=== PATIENT | female | born 1945 | race Hispanic/Latino ===

== ENCOUNTER 2022-04-01 22:02 | Emergency (ER) | payer OTHER, MEDICARE ==
[~2022-04-01] VITALS: Ht 162.6 cm; Wt 66.2 kg
[2022-04-01 22:17] VITALS: BP 159/57
[2022-04-01] MEDS ORDERED: CLIN-141 PO (22:19)
[2022-04-01] MEDS ORDERED: ACETAMINOPHEN 500 MG TABLET ONE (22:20)
[2022-04-01] MEDS ORDERED: CLINDAMYCIN 150 MG CAP PO ONE (22:30)
[2022-04-01] MEDS ORDERED: ACETAMINOPHEN 500 MG TABLET PO ONE (22:30)
[2022-04-01] MEDS ORDERED: GENTAMICIN SULFATE 0.3% 5ML DROPS OD SCH (22:30)
== END 2022-04-01 22:43 | disposition home or self-care (01) ==
LOC: EDH 22:02
DX: H00.012 Hordeolum externum right lower eyelid (principal); L03.211 Cellulitis of face; E78.00 Pure hypercholesterolemia, unspecified; I10 Essential (primary) hypertension; Z98.890 Other specified postprocedural states

== ENCOUNTER 2022-09-18 20:13 | Emergency (ER) | payer OTHER, MEDICARE ==
[~2022-09-18] VITALS: Ht 157.5 cm; Wt 63.0 kg
[~2022-09-18 20:13] MED LIST: CLIN-141 PO
[2022-09-18] MEDS ORDERED: BENZ-39 PO (22:57)
[2022-09-18] MEDS ORDERED: MOLN200C PO (22:57)
[2022-09-18] MEDS ORDERED: FLUT16H NASAL (22:57)
[2022-09-18 22:59] VITALS: BP 151/78
== END 2022-09-18 23:03 | disposition home or self-care (01) ==
LOC: EDH 20:13
DX: U07.1 COVID-19 (principal); B34.9 Viral infection, unspecified; K21.9 Gastro-esophageal reflux disease without esophagitis; E78.00 Pure hypercholesterolemia, unspecified; Z79.899 Other long term (current) drug therapy
CPT/HCPCS: 99283; 87635; 87880; 87804 ×2; C9803

== ENCOUNTER 2022-09-27 21:27 | Emergency (ER) | payer OTHER, MEDICARE ==
[~2022-09-27] VITALS: Ht 165.1 cm; Wt 63.5 kg
[~2022-09-27 21:27] MED LIST changes: +BENZ-39 PO; +FLUT16H NASAL; +MOLN200C PO
[2022-09-27] MEDS ORDERED: CYCLOBENZAPRINE HCL 10 MG TABLET PO ONE (23:00)
[2022-09-27] MEDS ORDERED: KETOROLAC 15MG/ML VIAL (15MG/ML) IM ONE (23:00)
[2022-09-27] MEDS ORDERED: CYCL5TAB PO (23:04)
[2022-09-27] MEDS ORDERED: KETO10TA2 PO (23:04)
[2022-09-27 23:22] VITALS: BP 146/79
== END 2022-09-27 23:35 | disposition home or self-care (01) ==
LOC: EDH 21:27
DX: M62.830 Muscle spasm of back (principal); E78.00 Pure hypercholesterolemia, unspecified; I10 Essential (primary) hypertension; M19.90 Unspecified osteoarthritis, unspecified site; Z79.1 Long term (current) use of non-steroidal anti-inflammatories (NSAID); Z79.899 Other long term (current) drug therapy; Z98.890 Other specified postprocedural states
CPT/HCPCS: 96372; 99283; J1885

== ENCOUNTER 2023-01-16 17:21 | Emergency (ER) | payer OTHER, MEDICARE ==
[~2023-01-16] VITALS: Ht 157.5 cm; Wt 60.8 kg
[~2023-01-16 17:21] MED LIST changes: +CYCL5TAB PO; +FAMO-136 PO; +KETO10TA2 PO; +OMEP-420 PO
[2023-01-16 18:03] LABS: BASOPHILS % (AUTO) 0.4 % (0.0-5.0); EOSINOPHILS % (AUTO) 3.8 % (0.0-8.0); HEMATOCRIT 36.7 % (36-48); LYMPHOCYTES % (AUTO) 13.1 % (21.0-51.0); MEAN CORPUSCULAR HEMOGLOBIN 30.8 pg (27.0-33.0); MEAN CORPUSCULAR HGB CONC 34.3 g/dL (32.0-36.0); MEAN CORPUSCULAR VOLUME 89.7 fL (79-99); MONOCYTES % (AUTO) 6.4 % (3.0-13.0); NEUTROPHILS % (AUTO) 76.2 % (40.0-77.0); PLATELET COUNT (AUTO) 233 K/uL (130-400); RED BLOOD CELL COUNT(AUTO) 4.09 MIL/uL (4.00-5.50); RED CELL DISTRIBUTION WIDTH 12.2 % (11.0-15.5); WHITE BLOOD COUNT (AUTO) 6.9 K/uL (4.8-10.8)
[2023-01-16 18:05] LABS: APPEARANCE,URINE CLEAR (CLEAR); BILIRUBIN,URINE NEGATIVE (NEGATIVE); COLOR,URINE COLORLESS (YELLOW); GLUCOSE, URINE (UA) NEGATIVE (NEGATIVE); KETONES,URINE NEGATIVE (NEGATIVE); LEUKOCYTE ESTERASE ,URINE NEGATIVE Leu/uL (NEGATIVE); NITRATE,URINE NEGATIVE (NEGATIVE); PROTEIN,URINE NEGATIVE (NEGATIVE); UROBILINOGEN,URINE 0.2 mg/dL (0.2-1.0)
[2023-01-16 18:06] LABS: RBC,URINE 0-1 /HPF (0-1); SQUAMOUS EPITHELIAL CELL,UR RARE /HPF (0-2); WBC,URINE 0-1 /HPF (0-1)
[2023-01-16 18:22] LABS: CREATININE 0.8 mg/dL (0.5-1.5); POTASSIUM 3.2 mmol/L (3.5-5.1)
[2023-01-16 18:28] LABS: ALBUMIN 4.2 g/dL (3.5-5.0); TOTAL PROTEIN, SERUM 7.6 g/dL (6.0-8.3)
[2023-01-16] MEDS ORDERED: ONDA4TAB10 PO (18:57)
[2023-01-16] MEDS ORDERED: LOPE2CAP PO (18:57)
[2023-01-16 19:29] VITALS: BP 150/54
== END 2023-01-16 19:37 | disposition home or self-care (01) ==
LOC: EDH 17:21
DX: K52.9 Noninfective gastroenteritis and colitis, unspecified (principal); E78.00 Pure hypercholesterolemia, unspecified; I10 Essential (primary) hypertension; Z79.899 Other long term (current) drug therapy; Z20.822 Contact with and (suspected) exposure to COVID-19
CPT/HCPCS: 99285; 71045; 87635; 84484; 80053; 85025; 87804 ×2; 81001; 36415; 93005; C9803

== ENCOUNTER 2023-09-20 10:32 | Emergency (ER) | payer MEDICARE ==
[~2023-09-20] VITALS: Ht 157.5 cm; Wt 60.3 kg
[~2023-09-20 10:32] MED LIST changes: +LOPE2CAP PO; +ONDA4TAB10 PO
[2023-09-20 11:28] LABS: BASOPHILS # (AUTO) 0.03 K/uL (0.00-0.20); EOSINOPHILS # (AUTO) 0.11 K/uL (0.00-0.70); EOSINOPHILS % (AUTO) 3.8 % (0.0-8.0); HEMATOCRIT 39.7 % (36-48); IMMATURE GRANULOCYTE ABSOLUTE 0.01 K/uL (0-1); LYMPHOCYTES # (AUTO) 0.8 K/uL (1.0-4.8); LYMPHOCYTES % (AUTO) 25.9 % (21.0-51.0); MEAN CORPUSCULAR HEMOGLOBIN 31.7 pg (27.0-33.0); MEAN CORPUSCULAR HGB CONC 34.8 g/dL (32.0-36.0); MEAN CORPUSCULAR VOLUME 91.1 fL (79-99); MONOCYTES # (AUTO) 0.4 K/uL (0.1-1.0); NEUTROPHILS # (AUTO) 1.6 K/uL (1.8-7.7); PLATELET COUNT (AUTO) 212 K/uL (130-400); RED BLOOD CELL COUNT(AUTO) 4.36 MIL/uL (4.00-5.50); RED CELL DISTRIBUTION WIDTH 12.2 % (11.0-15.5); WHITE BLOOD COUNT (AUTO) 2.9 K/uL (4.8-10.8)
[2023-09-20 11:41] LABS: ALBUMIN 4.1 g/dL (3.5-5.0); BILIRUBIN,TOTAL 1.1 mg/dL (0.2-1.0); CREATININE 0.8 mg/dL (0.5-1.5); TOTAL PROTEIN, SERUM 7.9 g/dL (6.0-8.3)
[2023-09-20 12:27] LABS: BAND NEUTROPHILS % (MANUAL) 3 % (0-2); BASOPHILS % (MANUAL) 1 % (0-2); EOSINOPHILS % (MANUAL) 6 % (1-6); LYMPHOCYTES % (MANUAL) 28 % (22-44); MAN.DIFF COMMENT-IMPRESSION MANUAL DIFFERENTIAL; MONOCYTES % (MANUAL) 14 % (2-9); PLATELET MORPHOLOGY COMMENT ADEQUATE; SEGMENTED NEUTROPHILS % 48 % (40-70); TOTAL CELLS COUNTED 100
[2023-09-20 12:29] LABS: POTASSIUM 2.9 mmol/L (3.5-5.1)
[2023-09-20] MEDS ORDERED: LACTATED RINGERS 1000ML 1,000 ML IV ONE (12:30)
[2023-09-20] MEDS ORDERED: ONDANSETRON 4MG INJ IVP ONE (12:30)
[2023-09-20 13:54] LABS: APPEARANCE,URINE CLEAR (CLEAR); BILIRUBIN,URINE NEGATIVE (NEGATIVE); COLOR,URINE LIGHT-YELLOW (YELLOW); GLUCOSE, URINE (UA) NEGATIVE (NEGATIVE); KETONES,URINE NEGATIVE (NEGATIVE); LEUKOCYTE ESTERASE ,URINE NEGATIVE Leu/uL (NEGATIVE); NITRATE,URINE NEGATIVE (NEGATIVE); PH,URINE 6.5 (5.0-8.0); PROTEIN,URINE NEGATIVE (NEGATIVE); UROBILINOGEN,URINE 0.2 mg/dL (0.2-1.0)
[2023-09-20 13:55] LABS: ADD UA MICROSCOPIC YES
[2023-09-20 13:56] LABS: RBC,URINE 0-1 /HPF (0-1); WBC,URINE 0-1 /HPF (0-1)
[2023-09-20 14:00] VITALS: BP 134/61; PULSE 59; RESP 14; O2SAT 100
[2023-09-20] MEDS ORDERED: POTASSIUM BICARB/CIT AC 25 MEQ TABLET.EFF PO ONE (14:00)
[2023-09-20] MEDS ORDERED: ONDA4TAB10 PO (14:13)
== END 2023-09-20 14:32 | disposition home or self-care (01) ==
LOC: EDH 10:32
DX: R11.2 Nausea with vomiting, unspecified (principal); E87.6 Hypokalemia; E63.9 Nutritional deficiency, unspecified; E78.00 Pure hypercholesterolemia, unspecified; I10 Essential (primary) hypertension; K21.9 Gastro-esophageal reflux disease without esophagitis; Z79.899 Other long term (current) drug therapy
CPT/HCPCS: 99285; 96374; 71045; 96361; 84484; 80053; 83880; 85025; 81001; 36415; 93005; J7120; J2405

== ENCOUNTER 2024-04-05 10:05 | Emergency (ER) | payer OTHER, MEDICARE ==
[~2024-04-05] VITALS: Ht 149.9 cm; Wt 58.1 kg
[~2024-04-05 10:05] MED LIST changes: +ONDA-243 PO; -ONDA4TAB10 PO
[2024-04-05] MEDS ORDERED: SOLU-MEDROL 125MG VIAL IVP ONE (11:00)
[2024-04-05] MEDS ORDERED: METH4TAB3 PO (12:06)
[2024-04-05] MEDS: SOLU-MEDROL 125MG VIAL IM ONE (12:29)
[2024-04-05] MEDS: ACETAMINOPHEN WITH CODEINE 1 TAB TAB PO ONE (12:29)
[2024-04-05 13:20] VITALS: BP 152/65; PULSE 78; RESP 16; O2SAT 97
== END 2024-04-05 13:21 | disposition home or self-care (01) ==
LOC: EDH 10:05
DX: M16.12 Unilateral primary osteoarthritis, left hip (principal); G89.29 Other chronic pain; E78.00 Pure hypercholesterolemia, unspecified; I10 Essential (primary) hypertension; K21.9 Gastro-esophageal reflux disease without esophagitis; Z79.899 Other long term (current) drug therapy
CPT/HCPCS: 99283; 73502; 96372; J2919

== ENCOUNTER 2024-04-10 17:34 | Observation (INO) | payer OTHER, MEDICARE ==
[~2024-04-10] VITALS: Ht 134.6 cm; Wt 53.4 kg
[~2024-04-10 17:34] MED LIST changes: +METH4TAB3 PO
[2024-04-10 18:11] LABS: BASOPHILS # (AUTO) 0.02 K/uL (0.00-0.20); BASOPHILS % (AUTO) 0.5 % (0.0-5.0); EOSINOPHILS # (AUTO) 0.19 K/uL (0.00-0.70); EOSINOPHILS % (AUTO) 4.3 % (0.0-8.0); HEMATOCRIT 35.1 % (36-48); IMMATURE GRANULOCYTE ABSOLUTE 0.01 K/uL (0-1); LYMPHOCYTES # (AUTO) 1.3 K/uL (1.0-4.8); LYMPHOCYTES % (AUTO) 30.5 % (21.0-51.0); MEAN CORPUSCULAR HEMOGLOBIN 32.2 pg (27.0-33.0); MEAN CORPUSCULAR HGB CONC 36.5 g/dL (32.0-36.0); MEAN CORPUSCULAR VOLUME 88.2 fL (79-99); MONOCYTES # (AUTO) 0.6 K/uL (0.1-1.0); MONOCYTES % (AUTO) 12.5 % (3.0-13.0); NEUTROPHILS # (AUTO) 2.3 K/uL (1.8-7.7); PLATELET COUNT (AUTO) 187 K/uL (130-400); RED BLOOD CELL COUNT(AUTO) 3.98 MIL/uL (4.00-5.50); RED CELL DISTRIBUTION WIDTH 11.8 % (11.0-15.5); WHITE BLOOD COUNT (AUTO) 4.4 K/uL (4.8-10.8)
[2024-04-10 18:19] LABS: APPEARANCE,URINE CLEAR (CLEAR); BILIRUBIN,URINE NEGATIVE (NEGATIVE); GLUCOSE, URINE (UA) NEGATIVE (NEGATIVE); KETONES,URINE 10 mg/dL (NEGATIVE); LEUKOCYTE ESTERASE ,URINE NEGATIVE Leu/uL (NEGATIVE); NITRATE,URINE NEGATIVE (NEGATIVE); PROTEIN,URINE NEGATIVE (NEGATIVE); UROBILINOGEN,URINE 0.2 mg/dL (0.2-1.0)
[2024-04-10 18:20] LABS: ADD UA MICROSCOPIC YES; COLOR,URINE STRAW (YELLOW)
[2024-04-10 18:21] LABS: WBC,URINE 0-1 /HPF (0-1)
[2024-04-10 18:28] LABS: BILIRUBIN,TOTAL 1.4 mg/dL (0.2-1.0); CREATININE 0.7 mg/dL (0.5-1.0); POTASSIUM 3.9 mmol/L (3.5-5.1); TOTAL PROTEIN, SERUM 7.3 g/dL (6.0-8.3)
[2024-04-10] MEDS: 0.9%NACL 1000ML 1,000 ML IV ONE (20:38)
[2024-04-10] MEDS ORDERED: CETI10TA57 PO (21:13)
[2024-04-10] MEDS ORDERED: LISI1TAB53 PO (21:13)
[2024-04-10] MEDS ORDERED: ERGO500093 PO (21:13)
[2024-04-10] MEDS ORDERED: PANT40TA54 PO (21:13)
[2024-04-10] MEDS ORDERED: SIMV-46 PO (21:13)
[2024-04-10] MEDS ORDERED: ONDANSETRON 4MG INJ IV PRN (22:00)
[2024-04-10] MEDS: LACTATED RINGERS 1000ML 1,000 ML IV SCH (22:38)
[2024-04-10 22:55] VITALS: BP 136/66; PULSE 67; RESP 22; O2SAT 100
[2024-04-10 22:59] LABS: CHLORIDE,URINE RANDOM 22 mmol/L (110-250); POTASSIUM,URINE RANDOM < 9 mmol/L (25-125); SODIUM,URINE RANDOM 15 mmol/l (40-220)
[2024-04-11] VITALS (9 sets, daily range): BP systolic 93–165; BP diastolic 53–74; PULSE 65–75; RESP 18–20; O2SAT 97–99
[2024-04-11 00:41] LABS: CREATININE 0.8 mg/dL (0.5-1.0); POTASSIUM 3.1 mmol/L (3.5-5.1)
[2024-04-11] MEDS ORDERED: MAGNESIUM 2GM PREMIX 50ML 50 ML IV PRN (02:00)
[2024-04-11] MEDS: POTASSIUM CHLORIDE 20MEQ/100ML 100 ML IV PRN (02:22)
[2024-04-11 07:23] LABS: BASOPHILS # (AUTO) 0.02 K/uL (0.00-0.20); BASOPHILS % (AUTO) 0.7 % (0.0-5.0); EOSINOPHILS # (AUTO) 0.18 K/uL (0.00-0.70); EOSINOPHILS % (AUTO) 6.1 % (0.0-8.0); HEMATOCRIT 31.6 % (36-48); LYMPHOCYTES # (AUTO) 1.1 K/uL (1.0-4.8); LYMPHOCYTES % (AUTO) 38.4 % (21.0-51.0); MEAN CORPUSCULAR HEMOGLOBIN 32.4 pg (27.0-33.0); MEAN CORPUSCULAR VOLUME 87.5 fL (79-99); MONOCYTES # (AUTO) 0.5 K/uL (0.1-1.0); MONOCYTES % (AUTO) 15.2 % (3.0-13.0); NEUTROPHILS # (AUTO) 1.2 K/uL (1.8-7.7); NEUTROPHILS % (AUTO) 39.6 % (40.0-77.0); PLATELET COUNT (AUTO) 190 K/uL (130-400); RED BLOOD CELL COUNT(AUTO) 3.61 MIL/uL (4.00-5.50)
[2024-04-11 08:17] LABS: ALBUMIN 3.5 g/dL (3.5-5.0); CREATININE 0.7 mg/dL (0.5-1.0); MAGNESIUM 1.8 mg/dL (1.80-2.40); POTASSIUM 3.6 mmol/L (3.5-5.1); THYROID STIMULATING HORMONE 2.24 uIU/mL (0.36-3.74); TOTAL PROTEIN, SERUM 6.2 g/dL (6.0-8.3)
[2024-04-11 08:57] LABS: BASOPHILS % (MANUAL) 1 % (0-2); EOSINOPHILS % (MANUAL) 5 % (1-6); LYMPHOCYTES % (MANUAL) 40 % (22-44); MAN.DIFF COMMENT-IMPRESSION MANUAL DIFFERENTIAL; MONOCYTES % (MANUAL) 8 % (2-9); PLATELET MORPHOLOGY COMMENT ADEQUATE; SEGMENTED NEUTROPHILS % 46 % (40-70); TOTAL CELLS COUNTED 100
[2024-04-11] MEDS: LISINOPRIL 20 MG TABLET PO SCH (09:00)
[2024-04-11] MEDS: CETIRIZINE HCL 5 MG TABLET PO SCH (09:00)
[2024-04-11] MEDS: HYDROCHLOROTHIAZIDE 25 MG TABLET PO SCH (09:00)
[2024-04-11] MEDS: SIMVASTATIN 20 MG TABLET PO SCH (09:00)
[2024-04-11] MEDS: FAMOTIDINE 20MG VIAL IV SCH (09:52)
[2024-04-11] MEDS: 0.9%NACL 1000ML 1,000 ML IV SCH (09:53)
[2024-04-12] VITALS (14 sets, daily range): BP systolic 104–166; BP diastolic 51–75; PULSE 59–81; RESP 13–22; O2SAT 99–100
[2024-04-12 05:02] LABS: HEMATOCRIT 30.2 % (36-48); MEAN CORPUSCULAR HEMOGLOBIN 30.9 pg (27.0-33.0); MEAN CORPUSCULAR HGB CONC 34.4 g/dL (32.0-36.0); MEAN CORPUSCULAR VOLUME 89.6 fL (79-99); RED BLOOD CELL COUNT(AUTO) 3.37 MIL/uL (4.00-5.50); RED CELL DISTRIBUTION WIDTH 12.2 % (11.0-15.5); WHITE BLOOD COUNT (AUTO) 3.4 K/uL (4.8-10.8)
[2024-04-12 05:14] LABS: ALBUMIN 3.3 g/dL (3.5-5.0); BILIRUBIN,TOTAL 0.8 mg/dL (0.2-1.0); CREATININE 0.6 mg/dL (0.5-1.0); POTASSIUM 3.3 mmol/L (3.5-5.1); TOTAL PROTEIN, SERUM 5.7 g/dL (6.0-8.3)
[2024-04-12] MEDS ORDERED: PROPOFOL 10 MG/ML 20ML VIAL IV ONE (12:14)
[2024-04-12] MEDS ORDERED: LIDOCAINE PF 100MG/5ML (2%) SYRINGE 5ML ONE (12:14)
[2024-04-13 00:44] VITALS: BP 121/63; PULSE 82; RESP 18
[2024-04-13 04:43] VITALS: BP 111/44; PULSE 60; RESP 18
[2024-04-13 07:00] VITALS: BP 129/74; PULSE 68; RESP 20
[2024-04-13 07:40] VITALS: O2SAT 100
[2024-04-13 11:00] VITALS: BP 120/64; PULSE 78; RESP 20
== END 2024-04-13 14:03 | disposition home or self-care (01) ==
LOC: EDH 17:34 → EDHIP 21:43 → INTOOBSV 21:43 → 2AH 22:55
PROVIDERS: ADMIT Internal Medicine; ATTEND Internal Medicine
DX: K29.70 Gastritis, unspecified, without bleeding (principal); K22.2 Esophageal obstruction; R62.7 Adult failure to thrive; R13.10 Dysphagia, unspecified; R63.4 Abnormal weight loss; E87.1 Hypo-osmolality and hyponatremia; E87.6 Hypokalemia; E78.5 Hyperlipidemia, unspecified; I10 Essential (primary) hypertension; M81.0 Age-related osteoporosis without current pathological fracture; K21.9 Gastro-esophageal reflux disease without esophagitis; E78.00 Pure hypercholesterolemia, unspecified; E87.8 Other disorders of electrolyte and fluid balance, not elsewhere classified; Z79.899 Other long term (current) drug therapy
CPT/HCPCS: 80051; 84295; 99285; 84443 ×2; 84484; 80053 ×3; 83880; 85025 ×2; 81001; 36415 ×3; 71045; 93005; 96376 ×3; 96361 ×2; 96365; 96366 ×2; 96375; 83735; 83930; 82533; 74240; 92610; 43239; 85027; 88305; 88312; 43248; G0378 ×3; J7120; J7030; J3490 ×4; J3480 ×4; J2001; J2704; A4620; A4215; A4223; A4222; 80048; 96374

== ENCOUNTER 2025-01-16 15:26 | Emergency (ER) | payer OTHER, MEDICARE ==
[~2025-01-16] VITALS: Ht 160 cm; Wt 57.2 kg
[~2025-01-16 15:26] MED LIST changes: +AZIT250T9 PO; +CETI10TA57 PO; -CLIN-141 PO; -CYCL5TAB PO; +ERGO500093 PO; -FAMO-136 PO; -FLUT16H NASAL; -KETO10TA2 PO; -LOPE2CAP PO; -METH4TAB3 PO; -MOLN200C PO; -OMEP-420 PO; -ONDA-243 PO; +PANT40TA54 PO; +SIMV-46 PO
--- NOTE | 2025-01-16 15:35 | ERN ---
ED Note History of Present Illness Stated Complaint: COUGH Chief Complaint: Cough Time Seen by MD: 15:30 Dictation: PATIENT IS AN 79-YEAR-OLD FEMALE COMING IN TODAY WITH COUGH AND SHORTNESS A BREATH WITH CLEARED PHLEGM FOR THE LAST TWO DAYS. NO FEVER NO CHILLS NO CHEST PAIN NO BACK PAIN. SHE STATES SHE HAS A HISTORY OF RHEUMATOID ARTHRITIS AND HYPERTENSION. HE HAS NOT BEEN CARE DOCTOR. Allergies: Coded Allergies: No Known Allergies (Unverified Allergy, Unknown, 04/01/22) Home Meds Active Scripts Benzonatate (Tessalon Perles) 100 Mg Cap, 100 MG PO TID for cough for 5 Days, #15 CAP 0 Refills Prov:EMMA HUERTA 04/24/24 Azithromycin (Azithromycin) 250 Mg Tablet, 250 MG PO DAILY for 5 Days, #5 TAB Prov:EMMA HUERTA 04/24/24 Reported Medications Simvastatin (Simvastatin) 40 Mg Tablet, 40 MG PO DAILY, TAB 04/10/24 Ergocalciferol (Vitamin D2) (Vitamin D2) 1,250 Mcg (68249 Unit) Capsule, 1250 MCG PO QWEEK, CAP 04/10/24 Pantoprazole Sodium (Pantoprazole Sodium) 40 Mg Tablet.dr, 40 MG PO DAILY, TAB 04/10/24 Cetirizine HCl (Cetirizine HCl) 10 Mg Tablet, 10 MG PO DAILY, TAB 04/10/24 Past Medical History Past Medical History: Arthritis, High Cholesterol Additional Past Medical Hx: ESOPHAGEAL STRICTURE Surgical History: Other, BTL, Surgical History Other: TUBAL Family History: Negative Social History: Negative, Lives with family History: Not Applicable RN Note Reviewed/Agreed w/PFSH: Yes Review of System Dictation CONSTITUTIONAL: NEGATIVE EXCEPT FOR HPI HEAD/FACE: NEGATIVE EXCEPT FOR HPI EENT: NEGATIVE EXCEPT FOR HPI RESPIRATORY: NEGATIVE EXCEPT FOR HPI COUGH WITH WHITE PHLEGM MUCH MILD SOB GASTROINTESTINAL/ABDOMINAL: NEGATIVE EXCEPT FOR HPI GENITOURINARY: NEGATIVE EXCEPT FOR HPI MUSCULOSKELETAL: NEGATIVE EXCEPT FOR HPI INTEGUMENTARY: NEGATIVE EXCEPT FOR HPI NEUROLOGICAL/PSYCH: NEGATIVE EXCEPT FOR HPI HEMATOLOGIC/LYMPHATIC: NEGATIVE EXCEPT FOR HPI ALL SYSTEMS NEGATIVE, EXCEPT NOTED ABOVE. 13 POINT REVIEW OF SYSTEMS ASSESSED AND ALL NEGATIVE EXCEPT FOR ABOVE. Initial Vital Sign VS Vital Signs Date Time Temp Pulse Resp B/P (MAP) Pulse Ox O2 Delivery O2 Flow Rate FiO2 01/16/25 15:30 100.9 95 16 167/70 97 Room Air 0 01/16/25 16:23 21 Physical Exam Dictation VITAL SIGNS REVIEWED GENERAL APPEARANCE: ALERT, ORIENTED X 3, NO ACUTE DISTRESS, WELL DEVELOPED, NOURISHED. HEAD AND FACE: NON-TRAUMATIC. EYES: PERRL, PINK CONJUNCTIVAS, EYELID NO TRAUMA, ANTERIOR CHAMBER WITH ARCUS SENILIS. EARS: PINNAS INTACT AND NO SIGNS OF TRAUMA OR ERYTHEMA EAR CANALS CLEAR AND NO DISCHARGE TM NO ERYTHEMA NOSE: NO DISCHARGE, NO BLEEDING. OROPHARYNX: MOUTH NORMAL, TONGUE PINK, PHARYNX CLEAR,NO ERYTHEMA, TONSILS NO EXUDATES, NO ABSCESSES NOTED, MUCOUS MEMBRANE MOIST NECK: SUPPLE, NON-TENDER, NO THYROMEGALY, NO MASSES, NO JVD, NO BRUITS BREAST:DEFERRED CHEST:NO TENDERNESS, NO CREPITUS, NO PARADOXICAL MOVEMENT, NO RETRACTIONS LUNGS:CLEAR, WELL-VENTILATED, SYMMETRIC, NO RALES, NO WHEEZING, NO RHONCHI, NO STRIDOR, GOOD BREATH SOUNDS BILATERALLY INTERMITTENT DRY COUGH NO HEART: REGULAR RATE, REGULAR RHYTHM, NO MURMUR, NO GALLOPS VASCULAR: NO PERIPHERAL EDEMA, ABDOMEN: SOFT, POSITIVE BOWEL SOUNDS, NONDISTENDED, NO GUARDING, NONTENDER, NO REBOUND, NO MASSES NO HEPATOMEGALY, NO SPLENOMEGALY, NO CAN'S SIGN, NO HERNIAS. RECTAL: DEFERRED GENITAL: DEFERRED NEUROLOGICAL: NORMAL SPEECH, MOTOR FUNCTION INTACT, SENSORY FUNCTION INTACT MUSCULOSKELETAL: NECK NONTENDER, FULL RANGE OF MOTION, BACK NONTENDER, FULL RANGE OF MOTION, EXTREMITIES: NONTENDER, FULL RANGE OF MOTION SKIN: COLOR PINK, DRY, NO TURGOR, NO RASH, NO LACERATIONS, NO ABRASIONS, NO CONTUSIONS. LYMPHATIC: DEFERRED Results (Laboratory/Radiology) Laboratory/Radiology Laboratory Tests Test 01/16/25 15:35 Influenza Type A Antigen Negative For Type A Influenza Type B Antigen Negative For Type B SARS-CoV-2 Antigen (Rapid) PRESUMPTIVE NEGATIVE Group A Streptococcus Rapid negative (NEGATIVE) CHEST X-RAY NEGATIVE Labs Reviewed?: Yes ED Course ED Course Orders Procedure Category Date Status Time Rapid (Group A Strep) LAB 01/16/25 Complete 15:32 Covid19 (Sars Antigen LAB 01/16/25 Complete Rapid) 15:32 Influenza Type A & B, LAB 01/16/25 Complete Rapid 15:32 Dexamethasone 4mg/Ml PHA 01/16/25 Complete 1ml Vial (Dexametha 16:00 Chest 1vw RAD 01/16/25 Resulted 15:32 Acetaminophen 500mg PHA 01/16/25 Complete Tab (Tylenol 500mg T 16:00 Current Medications Medications (Trade) Dose Ordered Sig/Keke Route PRN Reason Start Time Stop Time Status Last Admin Dose Admin Acetaminophen (TYLenol 500MG TAB) 1,000 mg ONCE ONCE PO 01/16/25 16:00 01/16/25 16:01 DC 01/16/25 16:47 Dexamethasone Sodium Phosphate (dexaMETHasone 4MG/ML 1ML VIAL) 8 mg ONCE ONCE IM 01/16/25 16:00 01/16/25 16:01 DC 01/16/25 16:48 Vital Signs Date Time Temp Pulse Resp B/P (MAP) Pulse Ox O2 Delivery O2 Flow Rate FiO2 01/16/25 16:47 100.9 01/16/25 16:23 100.9 90 16 165/65 98 Room Air* 0 21 01/16/25 15:30 100.9 95 16 167/70 97 Room Air 0 1725/PATIENT DISCHARGED HOME WITH VIRAL URI WITH COUGH. DISCHARGED HOME WITH GÓMEZ ARTEAGA, WE WILL BE GIVEN AZITHROMYCIN IF ANY FEVERS IN THE NEXT 2-3 DAYS SEE YOUR PRIMARY CARE DOCTOR FOR FOLLOW UP Medical Decision Making MDM MEDICAL DISCHARGE MAKING BASED ON SWABS FOR FLU COVID AND STREP ALL SWABS NEGATIVE CHEST X-RAY CLEAR PATIENT HAS LOW-GRADE FEVER AND WE WILL BE TREATED FOR VIRAL URI WITH COUGH DX & DISP Disposition: Discharge Departure Impression: Primary Impression: Acute bacterial bronchitis Additional Impression: Cough Condition: Stable Scripts Benzonatate (Daleon Gary) 100 Mg Cap 200 MG PO TID for cough, #60 CAP 0 Refills Prov: EL CAST TOLL LINE REPAIRER 01/16/25 Albuterol Sulfate (Ventolin Hfa/Proventil Hfa/Proair Hfa) 90 Mcg Puff 2 PUFF IH Q4H for WHEEZING, #1 INHALER 0 Refills Prov: EL CAST NP 01/16/25 Azithromycin (Zithromax Tri-Jostin) 500 Mg Tablet 500 MG PO DAILY for 5 Days, #5 TAB Prov: EL CAST TOLL LINE REPAIRER 01/16/25 Additional Instructions: Follow-up with primary care provider in 1 to 2 days. Take medications as directed here in the emergency room. Okay to continue home medications unless otherwise discussed during your visit in the emergency room today. Return to your nearest emergency room if symptoms worsen or if there is no improvement. Call 911 if you need immediate assistance. Take Tylenol or Motrin [id number] as needed and if no contraindications are present. Increase oral hydration. A wound culture or urine culture was ordered here in the emergency room department please follow-up with primary care provider and advise them to get repeat ports from our facility. If you had any James wrap/splints that were applied here, please do not remove them until you see your primary care or specialty. Take antibiotics as directed until gone. Use albuterol inhaler every 4 hours while awake for the next two days. Take Tessalon Perles for cough. See your primary care doctor for follow up and manage Referrals: EMILIANO NEGRON MD (PCP) Time of Disposition: 17:25 I have reviewed the case, and I agree with, Diagnosis and Plan EL CAST NP Jan 16, 2025 15:35
[2025-01-16 16:39] LABS: RAPID GROUP A STREP negative (NEGATIVE)
[2025-01-16 16:46] LABS: COVID19 (SARS ANTIGEN RAPID) PRESUMPTIVE NEGATIVE (NEGATIVE)
[2025-01-16 16:47] VITALS: TEMP 100.9
[2025-01-16 16:47] LABS: INFLUENZA TYPE A Negative For Type A (NEGATIVE); INFLUENZA TYPE B Negative For Type B (NEGATIVE)
[2025-01-16] MEDS: acetaMINOPHEN 500 MG TABLET PO ONE (16:47)
[2025-01-16] MEDS: dexaMETHasone SOD PHOSPHATE 4 MG/ML 1ML VIAL IM ONE (16:48)
--- NOTE | 2025-01-16 17:01 | HMCIMG ---
CHEST 1VW HISTORY: Shortness of breath COMPARISON: 12/11/2024 FINDINGS: A frontal projection of the chest was obtained. No acute pulmonary infiltrates is seen. The heart is borderline enlarged. Degenerative changes are seen. Prominent interstitial markings are seen. Aortic calcifications are seen. IMPRESSION: 1. No acute pulmonary infiltrate is seen.
[2025-01-16] MEDS ORDERED: ALBUHFA IH (17:26)
[2025-01-16] MEDS ORDERED: AZIT500T2 PO (17:26)
[2025-01-16] MEDS ORDERED: BENZ-39 PO (17:26)
[2025-01-16 17:30] VITALS: BP 168/65; PULSE 88; RESP 16; TEMP 99.5; O2SAT 98
== END 2025-01-16 17:36 | disposition home or self-care (01) ==
LOC: EDH 15:26
DX: J20.8 Acute bronchitis due to other specified organisms (principal); R05.9 Cough, unspecified; B96.89 Other specified bacterial agents as the cause of diseases classified elsewhere; M19.90 Unspecified osteoarthritis, unspecified site; E78.00 Pure hypercholesterolemia, unspecified; Z79.899 Other long term (current) drug therapy; Z98.51 Tubal ligation status; Z20.822 Contact with and (suspected) exposure to COVID-19
CPT/HCPCS: 99284; 71045; 87426; 87880; 87804 ×2; 96372; J1100

== ENCOUNTER 2025-06-02 19:31 | Emergency (ER) | payer OTHER, MEDICARE ==
[~2025-06-02] VITALS: Ht 152.4 cm; Wt 49.9 kg
[~2025-06-02 19:31] MED LIST changes: +ALBUHFA IH; +AZIT500T2 PO; +METH-662 PO
[2025-06-02 20:26] LABS: IMMATURE GRANULOCYTE ABSOLUTE 0.02 K/uL (0-1); NUCLEATED RED BLOOD CELLS 0.0 % (0.0-0.19); PLATELET COUNT (AUTO) 163 K/uL (130-400); RED BLOOD CELL COUNT(AUTO) 3.97 MIL/uL (4.00-5.50); RED CELL DISTRIBUTION WIDTH 11.9 % (11.0-15.5); WHITE BLOOD COUNT (AUTO) 5.3 K/uL (4.8-10.8)
[2025-06-02 20:33] LABS: APPEARANCE,URINE CLEAR (CLEAR); GLUCOSE, URINE (UA) NEGATIVE (NEGATIVE); LEUKOCYTE ESTERASE ,URINE NEGATIVE Leu/uL (NEGATIVE); NITRATE,URINE NEGATIVE (NEGATIVE); OCCULT BLOOD,URINE +- (TRACE) (NEGATIVE)
[2025-06-02 20:34] LABS: ADD UA MICROSCOPIC YES
[2025-06-02 20:36] LABS: CREATININE 0.7 mg/dL (0.5-1.0); GLOMERULAR FILTR. RATE CALC 86.0 mL/min (>90); GLUCOSE,RANDOM 106.0 mg/dL (70-105); SODIUM SERUM 136.0 mmol/L (136-145); UREA NITROGEN, BLOOD 6.0 mg/dL (7-18)
--- NOTE | 2025-06-02 20:37 | ERN ---
ED Note History of Present Illness Stated Complaint: FEELS DEHYDRATED Chief Complaint: Hypertension Time Seen by MD: 19:41 Dictation: This is an 80-year-old female who presented to the emergency room stating that she has been urinating more she was given a pill recently by her PCP and she did not feel well. The daughter instructed her to take her blood pressure which was very elevated and she came into the ER with her spouse for further evaluation. She stated that she felt like she was dehydrated because of the recent pill although she is trying to drink enough fluids. No dysuria hematuria. She had some dizziness. Which started around 1:00 p.m.. She does state that her mouth gets dry easily. She usually takes her antihypertensives in the morning. It appears that she has had chronic joint pains neck pains for many years and her primary care physician recommended only Tylenol at her advanced age. She stated that she was really having worse neck pain and joint pains today prior to her blood pressure being high Temperature 97.6 pulse 86 respirations 16 blood pressure 208/89 with a pulse oximetry of 99%. Chronic medical problems include hypertension, hypercholesterolemia, esophageal stricture and psoriatic arthritis and osteoarthritis. Allergies: Coded Allergies: No Known Allergies (Unverified Allergy, Unknown, 04/01/22) Home Meds Active Scripts Tramadol Hcl (Tramadol HCl) 50 Mg Tablet, 50 MG PO TIDP, #16 TAB 0 Refills Prov:KEVIN AVALOS MD 06/02/25 Methocarbamol (Robaxin) 750 Mg Tab, 1 TAB PO DAILY for 5 Days, #5 TAB 0 Refills Prov:ANGELICA ANTONIO MD 02/28/25 Benzonatate (Tessalon Perles) 100 Mg Cap, 200 MG PO TID for cough, #60 CAP 0 Refills Prov:EL CAST NP 01/16/25 Albuterol Sulfate (Ventolin Hfa/Proventil Hfa/Proair Hfa) 90 Mcg Puff, 2 PUFF IH Q4H for WHEEZING, #1 INHALER 0 Refills Prov:EL CAST NP 01/16/25 Azithromycin (Zithromax Tri-Jostin) 500 Mg Tablet, 500 MG PO DAILY for 5 Days, #5 TAB Prov:EL CAST NP 01/16/25 Benzonatate (Tessalon Perles) 100 Mg Cap, 100 MG PO TID for cough for 5 Days, #15 CAP 0 Refills Prov:EMMA HUERTA 04/24/24 Azithromycin (Azithromycin) 250 Mg Tablet, 250 MG PO DAILY for 5 Days, #5 TAB Prov:EMMA HUERTA 04/24/24 Reported Medications Simvastatin (Simvastatin) 40 Mg Tablet, 40 MG PO DAILY, TAB 04/10/24 Ergocalciferol (Vitamin D2) (Vitamin D2) 1,250 Mcg (08815 Unit) Capsule, 1250 MCG PO QWEEK, CAP 04/10/24 Pantoprazole Sodium (Pantoprazole Sodium) 40 Mg Tablet.dr, 40 MG PO DAILY, TAB 04/10/24 Cetirizine HCl (Cetirizine HCl) 10 Mg Tablet, 10 MG PO DAILY, TAB 04/10/24 Past Medical History Past Medical History: Arthritis, High Cholesterol, Hypertension Additional Past Medical Hx: ESOPHAGEAL STRICTURE Surgical History: Other, BTL, Surgical History Other: TUBAL Family History: Negative Social History: Negative, Lives with family History: Not Applicable RN Note Reviewed/Agreed w/PFSH: Yes Review of System Dictation Constitutional: Negative for fever,chills, and weight loss positive for feeling dehydrated Eyes: Negative for injury, pain,redness, and discharge ENT: Negative for injury,pain or swelling Cardiovascular: Negative for chest pain, palpitations, and edema Respiratory: Negative for shortness of breath, cough, and wheezing, Abdomen/GI: Negative for abdominal pain, nausea, vomiting, diarrhea, and constipation Back: Negative for injury and pain : Negative for injury, bleeding and discharge positive for increased frequency MS/Extremity: Negative for injury and deformity Skin: Negative for rash, and discoloration Neuro: Negative for headache, weakness, numbness, tingling, and seizure Psych: Negative for suicide ideation, homicidal ideation, and hallucinations positive for chronic neck and joint pains. Initial Vital Sign VS Vital Signs Date Time Temp Pulse Resp B/P (MAP) Pulse Ox O2 Delivery O2 Flow Rate FiO2 06/02/25 19:33 97.5 86 16 208/89 99 Room Air 06/02/25 20:41 0 21 Physical Exam Dictation General: awake, alert, NAD generally anxious Head/Face: Normocephalic, atraumatic Eyes: PERRL, EOMI, vision at baseline ENT: oral cavity clear, TMs clear, no signs of infection Neck: Trachea midline, supple, no nuchal rigidity paraspinal neck muscle spasm Cardiovascular: RRR, normal S1/S2, No MRGs, no JVD Respiratory: CTAB, no respiratory distress, No rales or wheezes Abdomen: Soft, non-tender, non-distended, normal bowel sounds, no guarding or rebound. Skin: Warm, dry, normal turgor, no rash MS/Extremity: Pulses equal, no cyanosis, neurovascular intact, FROM Neuro: COAx4, GCS 15, strength 5/5, CN 2-12 intact, normal cerebellar exam, normal gait, Psych: Normal behavior, mood, and affect normal Extremities-trace edema without any palpable cords, Homans sign is negative Results (Laboratory/Radiology) Laboratory/Radiology Laboratory Tests Test 06/02/25 20:07 06/02/25 20:24 White Blood Count 5.3 K/uL (4.8-10.8) Red Blood Count 3.97 MIL/uL (4.00-5.50) L Hemoglobin 12.7 g/dL (12.0-16.0) Hematocrit 37.7 % (36-48) Mean Corpuscular Volume 95.0 fL (79-99) Mean Corpuscular Hemoglobin 32.0 pg (27.0-33.0) Mean Corpuscular Hemoglobin Concent 33.7 g/dL (32.0-36.0) Red Cell Distribution Width 11.9 % (11.0-15.5) Platelet Count 163 K/uL (130-400) Mean Platelet Volume 11.5 fL (7.5-10.5) H Immature Granulocyte % (Auto) 0.4 % (0-1) Neutrophils (%) (Auto) 55.1 % (40.0-77.0) Lymphocytes (%) (Auto) 30.0 % (21.0-51.0) Monocytes (%) (Auto) 8.7 % (3.0-13.0) Eosinophils (%) (Auto) 4.8 % (0.0-8.0) Basophils (%) (Auto) 1.0 % (0.0-5.0) Neutrophils # (Auto) 2.9 K/uL (1.8-7.7) Lymphocytes # (Auto) 1.6 K/uL (1.0-4.8) Monocytes # (Auto) 0.5 K/uL (0.1-1.0) Eosinophils # (Auto) 0.25 K/uL (0.00-0.70) Basophils # (Auto) 0.05 K/uL (0.00-0.20) Absolute Immature Granulocyte (auto 0.02 K/uL (0-1) Nucleated Red Blood Cells 0.0 % (0.0-0.19) Sodium Level 136 mmol/L (136-145) Potassium Level 3.5 mmol/L (3.5-5.1) Chloride Level 98 mmol/L (101-111) L Carbon Dioxide Level 30 mmol/L (21-32) Blood Urea Nitrogen 6 mg/dL (7-18) L Creatinine 0.7 mg/dL (0.5-1.0) Glomerular Filtration Rate Calc 86 mL/min (>90) Random Glucose 106 mg/dL (70-105) H Total Calcium 8.6 mg/dL (8.5-10.1) Total Creatine Kinase 56 U/L (21-232) Troponin I High Sensitivity 10 ng/L (4-50) Urine Color COLORLESS (YELLOW) Urine Appearance CLEAR (CLEAR) Urine pH 7.0 (5.0-8.0) Urine Specific Cullen 1.002 (1.001-1.031) Urine Protein NEGATIVE mg/dL (NEGATIVE) Urine Glucose (UA) NEGATIVE mg/dL (NEGATIVE) Urine Ketones NEGATIVE mg/dL (NEGATIVE) Urine Occult Blood +- (TRACE) (NEGATIVE) H Urine Nitrate NEGATIVE (NEGATIVE) Urine Bilirubin NEGATIVE mg/dL (NEGATIVE) Urine Urobilinogen 0.2 mg/dL (0.2-1.0) Urine Leukocyte Esterase NEGATIVE Deb/uL Urine RBC 0-1 /HPF (0-1) Urine WBC 0-1 /HPF (0-1) Urine Bacteria None /HPF (None Seen) Labs Reviewed?: Yes EKG Comment: Twelve lead EKG done on 06/02/2025 at 8:13 p.m. showed a heart rate of 82, MN interval 143, QRS duration 79, QT/QTC 420/490 Impression normal sinus rhythm with nonspecific ST-T changes. EKG rhythm strip shows a normal sinus rhythm with no acute ST-T elevations. Interpreted by ER MD Dr. Avalos ED Course ED Course Orders Procedure Category Date Status Time Cbc With Differential LAB 06/02/25 Complete 19:58 Basic Metabolic Panel LAB 06/02/25 Complete 19:58 Cardiac Panel LAB 06/02/25 Complete 20:02 12 Lead Ekg Tracing- EKG 06/02/25 Resulted Technical 20:02 Urinalysis Profile LAB 06/02/25 Complete 20:16 Hydralazine 20mg Inj PHA 06/02/25 Complete (Apresoline 20mg In 21:00 Methylprednisolone PHA 06/02/25 Complete Succ 40mg (Solu-Medro 21:30 Cyclobenzaprine Hcl PHA 06/02/25 Complete (Cyclobenzaprine Hcl 21:30 Morphine 2mg Syg PHA 06/02/25 Complete (Morphine 2mg Syg) 21:30 Acetaminophen 500mg PHA 06/02/25 Complete Tab (Tylenol 500mg T 23:30 Acetaminophen 500mg PHA 06/02/25 Complete Tab (Tylenol 500mg T 23:30 Current Medications Medications (Trade) Dose Ordered Sig/Keke Route PRN Reason Start Time Stop Time Status Last Admin Dose Admin Acetaminophen (TYLenol 500MG TAB) 500 mg ONCE ONCE PO 06/02/25 23:30 06/02/25 23:24 DC Acetaminophen (TYLenol 500MG TAB) 1,000 mg ONCE ONCE PO 06/02/25 23:30 06/02/25 23:31 DC 06/02/25 23:29 Cyclobenzaprine HCl (Cyclobenzaprine HCl) 5 mg ONCE ONCE PO 06/02/25 21:30 06/02/25 21:31 DC 06/02/25 21:40 Hydralazine HCl (APRESOLine 20MG INJ) 10 mg ONCE ONCE IV 06/02/25 21:00 06/02/25 21:01 DC 06/02/25 20:46 Methylprednisolone Sodium Succinate (Solu-medROL 40MG) 40 mg ONCE ONCE IVP 06/02/25 21:30 06/02/25 21:31 DC 06/02/25 21:41 Morphine Sulfate (morPHINE 2MG SYG) 2 mg ONCE ONCE IVP 06/02/25 21:30 06/02/25 21:31 DC 06/02/25 21:41 Vital Signs Date Time Temp Pulse Resp B/P (MAP) Pulse Ox O2 Delivery O2 Flow Rate FiO2 06/02/25 23:03 82 18 150/65 98 Room Air* 0 21 06/02/25 22:04 94 18 168/71 98 Room Air* 0 21 06/02/25 20:41 99.1 79 18 200/71 99 Room Air* 0 21 06/02/25 19:33 97.5 86 16 208/89 99 Room Air We will perform diagnostic labs, advanced imaging and administer medications according to the patient's complaint. Once the results are available, will revi ew and personally interpreted the labs to rule out any acute life-threatening emergency the trach require immediate intervention and treatment. I will then re-evaluate the patient after treatment and diagnostic exams have return to determine whether the patient requires any further testing, can safely be discharged home or need further admission to hospital for additional treatment and evaluation. 9:00 p.m. labs reviewed CBC BNP are acceptable no leukocytosis. BUN and creatinine are within normal limits. Urinalysis is unremarkable for any acute infection. I updated the patient and her spouse on relatively innocuous labs and that there was no evidence of any obvious dehydration and her blood pressure maybe elevated secondary to pain issues. Trial of a very low-dose hydralazine and pain medications and assess response 10:00 p.m. on re-evaluation patient stated that her pain was better but she was still dizzy. I have reassured her and let her rest as she just received medications. 11:15 p.m. her recent blood pressure was 150/65 and patient is feeling significantly improved. Plan DC to home to follow up with her primary care physician Medical Decision Making MDM Differential diagnosis: Hypertensive urgency, pain related hypertension, accelerated hypertension, hypertensive emergency Rationale: Tests considered and ordered secondary to shared decision making include: Previous outside records reviewed: Old ER visits. Risk of complication and/or morbidity or mortality of patient management: None Medications-Per medication reconciliation Need for hospitalization: Patient does not meet criteria for hospitalization. Need for emergency major/minor surgery: No There are no social concerns with this patient. Prescription drug management Prescriptions will include symptomatic care Patient's prior external medical records from other ER visits were reviewed by joseph woodard as indicated. Prior testing and results from previous visits were reviewed. Prior tests were taken into account with medical decision making and resource utilization, independent historian/historians were used to obtain complete medical history. I independently interpreted the test that were performed, results were reviewed by me and considered findings on radiology if ordered. Medical management and examination interpretation discussions were had by me with other qualified healthcare professionals as indicated for the patient's care. Problem List Problem List: (1) Hypertensive urgency (2) Psoriatic arthritis (3) Muscle spasm of back DX & DISP Disposition: Discharge Departure Impression: Primary Impression: Hypertensive urgency Additional Impressions: Psoriatic arthritis, Muscle spasm of back Condition: Stable Scripts Tramadol Hcl (Tramadol HCl) 50 Mg Tablet 50 MG PO TIDP, #16 TAB 0 Refills Prov: KEVIN AVALOS MD 06/02/25 Additional Instructions: Patient and the caregiver have been informed of all the diagnostic tests and the imaging conducted during the today's visit to the emergency room and has verbalized understanding of the results I have personally reviewed and interpreted all diagnostic exams performed here in the ER today as well as the vital signs documented by the nursing staff. The patient is now being discharged to home and should follow up with the primary care physician or the specialist as directed by the ER staff. Follow-up with primary care provider in 1 to 2 days. Take medications as directed here in the emergency room. Okay to continue home medications unless otherwise discussed during your visit in the emergency room today. Return to your nearest emergency room if symptoms worsen or if there is no improvement. Call 911 if you need immediate assistance. Take Tylenol or Motrin [id number] as needed and if no contraindications are present. Increase oral hydration. A wound culture or urine culture was ordered here in the emergency room department please follow-up with primary care provider and advise them to get repeat ports from our facility. If you had any James wrap/splints that were applied here, please do not remove them until you see your primary care or specialty. Counseling done on medication side effects, drug interactions and patient and spouse verbalized full understanding Referrals: EMILIANO NEGRON MD (PCP) KEVIN AVALOS MD Jun 02, 2025 20:37
[2025-06-02 20:41] VITALS: TEMP 99.1
[2025-06-02 21:09] LABS: CREATINE KINASE, TOTAL 56 U/L (21-232)
[2025-06-02] MEDS: CYCLOBENZAPRINE HCL 10 MG TABLET PO ONE (21:40)
[2025-06-02] MEDS: Solu-medROL 40MG VIAL IVP ONE (21:41)
[2025-06-02] MEDS ORDERED: TRAM50TA4 PO (22:06)
[2025-06-02 23:03] VITALS: BP 150/65; PULSE 82; RESP 18; O2SAT 98
--- NOTE | 2025-06-03 07:29 | EKG ---
[facility] Test Date: 2025-06-02 Test Time: 20:13:34 Pat Name: JOCELYN FERGUSON Department: ED Room: Gender: F Automatic [employer] Operator: [id number] : 1945 Requested By: KEVIN CLEMENTS Order Number: [id number] Reading MD: Brando Norris Measurements Intervals [place] Rate: 82 P: 19 MI: 143 QRS: 32 QRSD: 79 T: 29 QT: 420 QTc: 490 Interpretive Statements Sinus rhythm Compared to ECG 12/11/2024 10:47:32 No significant changes Electronically Signed On 06-03-2025 16:38:34 CDT by Brando Norris Please click the below link to view image of tracing.
== END 2025-06-02 23:49 | disposition home or self-care (01) ==
LOC: EDH 19:31
DX: I16.0 Hypertensive urgency (principal); L40.50 Arthropathic psoriasis, unspecified; M62.830 Muscle spasm of back; E78.00 Pure hypercholesterolemia, unspecified; E86.0 Dehydration; I10 Essential (primary) hypertension; Z79.899 Other long term (current) drug therapy; Z98.51 Tubal ligation status
CPT/HCPCS: 99284; 96374; 96375; 82550; 84484; 80048; 85025; 81001; 36415; 93005; J2919; J2270; J0360

== ENCOUNTER 2025-06-08 13:37 | Emergency (ER) | payer OTHER, MEDICARE ==
[~2025-06-08] VITALS: Ht 157.5 cm; Wt 59.9 kg
[~2025-06-08 13:37] MED LIST changes: +TRAM50TA4 PO
[2025-06-08 15:42] LABS: INFLUENZA TYPE A NEGATIVE FOR TYPE A (NEGATIVE); INFLUENZA TYPE B NEGATIVE FOR TYPE B (NEGATIVE); RAPID GROUP A STREP NEGATIVE (NEGATIVE); SARS-CoV-2, RNA, NAAT NEGATIVE SARS CoV-2 (NEGATIVE)
[2025-06-08] MEDS ORDERED: AZIT250T9 PO (15:52)
[2025-06-08] MEDS ORDERED: METH4TAB3 PO (15:52)
[2025-06-08] MEDS ORDERED: MAGIC PO (15:52)
--- NOTE | 2025-06-08 15:52 | ERN ---
General Chief Complaint: Sore Throat Stated Complaint: MULT Time Seen by MD: 13:45 Time Seen by Midlevel: 13:45 Source: patient History of Present Illness Initial Comments 80-year-old female presenting to the ER for evaluation of sore throat Allergies: Coded Allergies: No Known Allergies (Unverified Allergy, Unknown, 04/01/22) Home Meds Active Scripts Tramadol Hcl (Tramadol HCl) 50 Mg Tablet, 50 MG PO TIDP, #16 TAB 0 Refills Prov:KEVIN CLEMENTS MD 06/02/25 Methocarbamol (Robaxin) 750 Mg Tab, 1 TAB PO DAILY for 5 Days, #5 TAB 0 Refills Prov:ANGELICA ANTONIO MD 02/28/25 Benzonatate (Tessalon Perles) 100 Mg Cap, 200 MG PO TID for cough, #60 CAP 0 Refills Prov:EL CAST NP 01/16/25 Albuterol Sulfate (Ventolin Hfa/Proventil Hfa/Proair Hfa) 90 Mcg Puff, 2 PUFF IH Q4H for WHEEZING, #1 INHALER 0 Refills Prov:EL CAST NP 01/16/25 Azithromycin (Zithromax Tri-Jostin) 500 Mg Tablet, 500 MG PO DAILY for 5 Days, #5 TAB Prov:EL CAST NP 01/16/25 Benzonatate (Tessalon Perles) 100 Mg Cap, 100 MG PO TID for cough for 5 Days, #15 CAP 0 Refills Prov:EMMA HUERTA 04/24/24 Azithromycin (Azithromycin) 250 Mg Tablet, 250 MG PO DAILY for 5 Days, #5 TAB Prov:EMMA HUERTA 04/24/24 Reported Medications Simvastatin (Simvastatin) 40 Mg Tablet, 40 MG PO DAILY, TAB 04/10/24 Ergocalciferol (Vitamin D2) (Vitamin D2) 1,250 Mcg (04275 Unit) Capsule, 1250 MCG PO QWEEK, CAP 04/10/24 Pantoprazole Sodium (Pantoprazole Sodium) 40 Mg Tablet.dr, 40 MG PO DAILY, TAB 04/10/24 Cetirizine HCl (Cetirizine HCl) 10 Mg Tablet, 10 MG PO DAILY, TAB 04/10/24 Past Medical History Past Medical History: High Cholesterol, Hypertension, Sinusitis Medical History Other: ESOPHAGEAL STRICTURE Past Surgical History: Surgical History Other: TUBAL Family History Family History: Negative Social History Social History: Negative, Lives with family Female( History) History: Not Applicable ROS Dictation CONSTITUTIONAL: Negative except for HPI HEAD/FACE: Negative except for HPI EENT: Negative except for HPI RESPIRATORY: Negative except for HPI GASTROINTESTINAL/ABDOMINAL: Negative except for HPI GENITOURINARY: Negative except for HPI MUSCULOSKELETAL: Negative except for HPI INTEGUMENTARY: Negative except for HPI NEUROLOGICAL/PSYCH: Negative except for HPI HEMATOLOGIC/LYMPHATIC: Negative except for HPI All Systems Negative, Except as noted above. 13 point review of systems assessed and all negative except for above. Physical Exam Physical Exam Dictation PHYSICAL EXAM: GENERAL: alert,, awake oriented x 3 HEENT: EOMI, Sclera non icteric, moist mucosa, erythema to the posterior oropharynx with bilateral tonsillar exudates NECK: Supple, no JVD, trachea midline LUNGS: Clear breath sounds bilaterally. No wheezes HEART: Regular rate and rhythm. Normal S1 and S2, without murmurs ABD: Abdomen soft, nontender. Bowel sounds present EXT: No clubbing or cyanosis, NEURO: Alert and oriented to person, follows commands Results Laboratory and Microbiology Lab and Micro Result Laboratory Tests Test 06/08/25 14:17 Influenza Type A Antigen NEGATIVE FOR TYPE A Influenza Type B Antigen NEGATIVE FOR TYPE B SARS-CoV-2, RNA, NAAT NEGATIVE SARS CoV-2 Group A Streptococcus Rapid NEGATIVE (NEGATIVE) Labs Reviewed?: Yes MDM MDM: Differential diagnosis: Strep, upper respiratory infection, viral illness There are no social concerns with this patient. Prescription drug management Prescriptions will include: Azithromycin Medical management and examination interpretation discussions were had by me with other qualified healthcare professionals as indicated for the patient's care. ED Course Orders Procedure Category Date Status Time Covid Rna Naat LAB 06/08/25 Complete 14:44 Rapid (Group A Strep) LAB 06/08/25 Complete 14:44 Influenza Type A & B, LAB 06/08/25 Complete Rapid 14:44 Ketorolac PHA 06/08/25 In Process Tromethamine 15mg/Ml 16:00 Current Medications Medications (Trade) Dose Ordered Sig/Keke Route PRN Reason Start Time Stop Time Status Last Admin Dose Admin Ketorolac Tromethamine (toRADol) 15 mg ONCE ONCE IM 06/08/25 16:00 06/08/25 16:01 Vital Signs Date Time Temp Pulse Resp B/P (MAP) Pulse Ox O2 Delivery O2 Flow Rate FiO2 06/08/25 13:40 99.3 87 18 170/82 97 Room Air 0 DX & DISP Disposition: Discharge Departure Impression: Primary Impression: Pharyngitis Condition: Stable Scripts Methylprednisolone (Medrol) 4 Mg Tab.ds.pk 1 TAB PO AD for 6 Days, #21 TAB 0 Refills 6 on day 1 then reduce by one tablet daily until gone Prov: EMMA HUERTA 06/08/25 Lidocaine HCl (Magic Mouthwash [Maalox/Lidocaine/Nystatin]) 200 Mg-200 Mg-20 Mg/5 Ml Soln 15 ML PO TID for 7 Days, #355 ML 0 Refills Prov: EMMA HUERTA 06/08/25 Azithromycin (Azithromycin) 250 Mg Tablet 1 TAB PO AD for 5 Days, #6 TAB 0 Refills 2 the first day followed by 1 for days 2-5 Prov: EMMA HUERTA 06/08/25 Additional Instructions: You have tested negative for influenza a, influenza B, and COVID-19. You were given a shot of Toradol in the emergency department which should help your pain. Based on your physical examination there are signs of infection. I have prescribed you oral antibiotics and steroids which should help improve your symptoms over the next couple of days. I have also prescribed you were a mouthwash which should help improve your symptoms Referrals: EMILIANO NEGRON MD (PCP) Time of Disposition: 15:50 I have reviewed the case, and I agree with, Diagnosis and Plan I performed the substantive portion of the visit. I have reviewed and personally made and approve the management plan that is documented in the note by myself or the MELONIE. I acknowledge for responsibility for the patient's management plan. EMMA HUERTA Jun 08, 2025 15:52
[2025-06-08 16:03] VITALS: BP 154/75; PULSE 80; RESP 17; TEMP 97.6; O2SAT 100
== END 2025-06-08 16:26 | disposition home or self-care (01) ==
LOC: EDH 13:37
DX: J02.9 Acute pharyngitis, unspecified (principal); E78.00 Pure hypercholesterolemia, unspecified; I10 Essential (primary) hypertension; Z20.822 Contact with and (suspected) exposure to COVID-19; Z79.899 Other long term (current) drug therapy
CPT/HCPCS: 99283; 87635; 87880; 87804 ×2; 96372; J1885

== ENCOUNTER 2025-06-14 09:33 | Emergency (ER) | payer OTHER, MEDICARE ==
[~2025-06-14] VITALS: Ht 157.5 cm; Wt 59.9 kg
[~2025-06-14 09:33] MED LIST changes: +MAGIC PO; +METH4TAB3 PO
[2025-06-14 09:35] VITALS: BP 164/91; PULSE 77; RESP 18; TEMP 97.4
[2025-06-14] MEDS ORDERED: CIPR7.5D7 OTIC (09:45)
--- NOTE | 2025-06-14 09:45 | ERN ---
General Chief Complaint: Earache Stated Complaint: RIGHT EAR ACHE Time Seen by MD: 09:38 History of Present Illness Initial Comments 80-year-old female who presents with right earache. He has had it for about a week. She was diagnosed with a otitis media, and took a course of oral antibiotics. She reports he is still has pain. No fevers or chills. She does have tenderness when touching the ear. No other symptoms. Allergies: Coded Allergies: No Known Allergies (Unverified Allergy, Unknown, 04/01/22) Home Meds Active Scripts Methylprednisolone (Medrol) 4 Mg Tab.ds.pk, 1 TAB PO AD for 6 Days, #21 TAB 0 Refills 6 on day 1 then reduce by one tablet daily until gone Prov:EMMA HUERTA 06/08/25 Lidocaine HCl (Magic Mouthwash [Maalox/Lidocaine/Nystatin]) 200 Mg-200 Mg-20 Mg/5 Ml Soln, 15 ML PO TID for 7 Days, #355 ML 0 Refills Prov:EMMA HUERTA 06/08/25 Azithromycin (Azithromycin) 250 Mg Tablet, 1 TAB PO AD for 5 Days, #6 TAB 0 Refills 2 the first day followed by 1 for days 2-5 Prov:EMMA HUERTA 06/08/25 Tramadol Hcl (Tramadol HCl) 50 Mg Tablet, 50 MG PO TIDP, #16 TAB 0 Refills Prov:KEVIN CLEMENTS MD 06/02/25 Methocarbamol (Robaxin) 750 Mg Tab, 1 TAB PO DAILY for 5 Days, #5 TAB 0 Refills Prov:ANGELICA ANTONIO MD 02/28/25 Benzonatate (Tessalon Perles) 100 Mg Cap, 200 MG PO TID for cough, #60 CAP 0 Refills Prov:EL CAST NP 01/16/25 Albuterol Sulfate (Ventolin Hfa/Proventil Hfa/Proair Hfa) 90 Mcg Puff, 2 PUFF IH Q4H for WHEEZING, #1 INHALER 0 Refills Prov:EL CAST NP 01/16/25 Azithromycin (Zithromax Tri-Jostin) 500 Mg Tablet, 500 MG PO DAILY for 5 Days, #5 TAB Prov:EL CAST NP 01/16/25 Benzonatate (Tessalon Perles) 100 Mg Cap, 100 MG PO TID for cough for 5 Days, #15 CAP 0 Refills Prov:EMMA HUERTA 04/24/24 Azithromycin (Azithromycin) 250 Mg Tablet, 250 MG PO DAILY for 5 Days, #5 TAB Prov:EMMA HUERTA 04/24/24 Reported Medications Simvastatin (Simvastatin) 40 Mg Tablet, 40 MG PO DAILY, TAB 04/10/24 Ergocalciferol (Vitamin D2) (Vitamin D2) 1,250 Mcg (78676 Unit) Capsule, 1250 MCG PO QWEEK, CAP 04/10/24 Pantoprazole Sodium (Pantoprazole Sodium) 40 Mg Tablet.dr, 40 MG PO DAILY, TAB 04/10/24 Cetirizine HCl (Cetirizine HCl) 10 Mg Tablet, 10 MG PO DAILY, TAB 04/10/24 Past Medical History Past Medical History: High Cholesterol, Hypertension, Sinusitis Medical History Other: ESOPHAGEAL STRICTURE Past Surgical History: Surgical History Other: TUBAL Family History Family History: Negative Social History Social History: Negative, Lives with family Female( History) History: Not Applicable ROS Dictation CONSTITUTIONAL: No chills, no fever, no weakness, no diaphoresis, no malaise. HEAD/FACE: No signs of trauma. EENT: Right earache RESPIRATORY: No cough, no orthopnea, no SOB, no stridor, no wheezing. CARDIOVASCULAR: No chest pain, no edema, no palpitations, no syncope. GASTROINTESTINAL/ABDOMINAL: No abdominal pain, no constipation, no diarrhea, no nausea, no vomiting. GENITOURINARY: No abnormal discharge, no dysuria, no frequent urination, no hematuria. No complaints of pain in the genitals. MUSCULOSKELETAL: No back pain, no gout, no joint pain, no joint swelling, no muscle pain, no muscle stiffness, no neck pain. INTEGUMENTARY: No change in color, no change in hair/nails, no dryness, no lesion, no lumps, no rash. NEUROLOGICAL/PSYCH: No anxiety, not depressed, no emotional problem, no headache, no numbness, no pre-existing deficit, no history of seizures, no tremors, no weakness. HEMATOLOGIC/LYMPHATIC: Not anemic, no history of blood clots, no apparent bleeding, no bruising, glands not swollen. All Systems Negative, Except as Noted. Physical Exam Physical Exam Dictation VITAL SIGNS: Reviewed. GENERAL APPEARANCE: Alert, oriented x3, no acute distress, obese. HEAD AND FACE: Non-traumatic. EYES: PERRL, pink conjunctivas, eyelid no trauma, anterior chamber clear. EARS: Mild erythema and tenderness to the tragus in ear canal. TM is intact. No obvious fluid levels behind. NOSE: No discharge, no bleeding. OROPHARYNX: Mouth normal, teeth no caries, tongue pink. Pharynx clear, no erythema. Tonsils no exudates, no abscesses noted. Mucous membrane moist. NECK: Supple, non-tender, no thyromegaly, no masses, no JVD, no bruits. BREAST: Deferred. CHEST: No tenderness, no crepitus, no paradoxical movement, no retractions. LUNGS: Clear, well-ventilated, symmetric, no rales, no wheezing, no rhonchi, no stridor, good breath sounds bilaterally. HEART: Regular rate, regular rhythm, no murmur, no gallops. VASCULAR: No peripheral edema. ABDOMEN: Soft, positive bowel sounds, nondistended, no guarding, nontender, no rebound, no masses no hepatomegaly, no splenomegaly, no Melissa's sign, no hernias. RECTAL: Deferred. GENITAL: Deferred. NEUROLOGICAL: Normal speech, gross motor function intact, gross sensory function intact. MUSCULOSKELETAL: Neck nontender, full range of motion, back nontender, full range of motion. EXTREMITIES: Nontender, full range of motion. SKIN: Color pink, dry, no turgor, no rash, no lacerations, no abrasions, no contusions. LYMPHATICS: Deferred. MDM 80-year-old female who presents for right ear pain. He reports tenderness to the right ear canal. Historian: Patient Comorbidities: Advanced age diabetes Limitations by social determinants of health: None Differential diagnosis: Otitis media versus otitis externa On clinical exam she would likely has a an otitis externa. No treatment in the ER indicated no labs or studies indicated We will discharge with Ciprodex recommend PCP follow up. ED Course Vital Signs Date Time Temp Pulse Resp B/P (MAP) Pulse Ox O2 Delivery O2 Flow Rate FiO2 06/14/25 09:35 97.3 77 18 164/91 97 Room Air DX & DISP Disposition: Discharge Departure Impression: Primary Impression: Right otitis externa Condition: Stable Scripts Ciprofloxacin HCl/Dexameth (Ciproflox-Dexameth Otic Susp) 0.3 %-0.1 % Drops.susp 4 DROP OTIC BID for 7 Days, #7.5 ML 0 Refills Prov: OFELIA RYAN DO 06/14/25 Additional Instructions: You likely have an external ear infection. I have prescribed Ciprodex drops. Apply four drops multiple times throughout the day. Use these drops until your symptoms are relieved. Alternate Tylenol and ibuprofen as needed for pain. These medications are [id number]. Follow up with your primary doctor. Referrals: EMILIANO NEGRON MD (PCP) OFELIA RYAN DO Jun 14, 2025 09:45
== END 2025-06-14 10:26 | disposition home or self-care (01) ==
LOC: EDH 09:33
DX: H60.91 Unspecified otitis externa, right ear (principal); E78.00 Pure hypercholesterolemia, unspecified; I10 Essential (primary) hypertension; Z79.899 Other long term (current) drug therapy
CPT/HCPCS: 99283

== ENCOUNTER 2025-07-17 14:44 | Emergency (ER) | payer OTHER, MEDICARE ==
[~2025-07-17] VITALS: Ht 152.4 cm; Wt 55.8 kg
[~2025-07-17 14:44] MED LIST changes: +CIPR7.5D7 OTIC
--- NOTE | 2025-07-17 15:27 | ERN ---
General Chief Complaint: Multiple Complaints Stated Complaint: WEAKNESS Time Seen by MD: 14:47 Source: patient History of Present Illness Initial Comments Patient is a an 80-year-old female coming in with multiple complaints. Per patient she has been having ear discomfort headaches for some time. Patient is pending to be evaluated by ENT but states that she has not seen any yet. She had that she has been having these increasing headaches which has been concerned. Allergies: Coded Allergies: No Known Allergies (Unverified Allergy, Unknown, 04/01/22) Home Meds Active Scripts Ciprofloxacin HCl/Dexameth (Ciproflox-Dexameth Otic Susp) 0.3 %-0.1 % Drops.susp, 4 DROP OTIC BID for 7 Days, #7.5 ML 0 Refills Prov:OFELIA RYAN DO 06/14/25 Methylprednisolone (Medrol) 4 Mg Tab.ds.pk, 1 TAB PO AD for 6 Days, #21 TAB 0 Refills 6 on day 1 then reduce by one tablet daily until gone Prov:EMMA HUERTA 06/08/25 Lidocaine HCl (Magic Mouthwash [Maalox/Lidocaine/Nystatin]) 200 Mg-200 Mg-20 Mg/5 Ml Soln, 15 ML PO TID for 7 Days, #355 ML 0 Refills Prov:EMMA HUERTA 06/08/25 Azithromycin (Azithromycin) 250 Mg Tablet, 1 TAB PO AD for 5 Days, #6 TAB 0 Re fills 2 the first day followed by 1 for days 2-5 Prov:EMMA HUERTA 06/08/25 Tramadol Hcl (Tramadol HCl) 50 Mg Tablet, 50 MG PO TIDP, #16 TAB 0 Refills Prov:KEVIN CLEMENTS MD 06/02/25 Methocarbamol (Robaxin) 750 Mg Tab, 1 TAB PO DAILY for 5 Days, #5 TAB 0 Refills Prov:ANGELICA ANTONIO MD 02/28/25 Benzonatate (Tessalon Perles) 100 Mg Cap, 200 MG PO TID for cough, #60 CAP 0 Refills Prov:EL CAST 01/16/25 Albuterol Sulfate (Ventolin Hfa/Proventil Hfa/Proair Hfa) 90 Mcg Puff, 2 PUFF IH Q4H for WHEEZING, #1 INHALER 0 Refills Prov:EL CAST 01/16/25 Azithromycin (Zithromax Tri-Jostin) 500 Mg Tablet, 500 MG PO DAILY for 5 Days, #5 TAB Prov:EL CAST EXTRUDER 01/16/25 Benzonatate (Tessalon Perles) 100 Mg Cap, 100 MG PO TID for cough for 5 Days, #15 CAP 0 Refills Prov:EMMA HUERTA PAC 04/24/24 Azithromycin (Azithromycin) 250 Mg Tablet, 250 MG PO DAILY for 5 Days, #5 TAB Prov:[facility] 04/24/24 Reported Medications Simvastatin (Simvastatin) 40 Mg Tablet, 40 MG PO DAILY, TAB 04/10/24 Ergocalciferol (Vitamin D2) (Vitamin D2) 1,250 Mcg (60101 Unit) Capsule, 1250 MCG PO QWEEK, CAP 04/10/24 Pantoprazole Sodium (Pantoprazole Sodium) 40 Mg Tablet.dr, 40 MG PO DAILY, TAB 04/10/24 Cetirizine HCl (Cetirizine HCl) 10 Mg Tablet, 10 MG PO DAILY, TAB 04/10/24 Past Medical History Past Medical History: High Cholesterol, Hypertension, Sinusitis Medical History Other: ESOPHAGEAL STRICTURE Past Surgical History: BTL, Surgical History Other: TUBAL Family History Family History: Negative Social History Social History: Negative, Lives with family Female( History) History: Not Applicable ROS Dictation CONSTITUTIONAL: No chills, no fever, no weakness, no diaphoresis, no malaise. HEAD/FACE: No signs of trauma. EENT: No eye pain, no blurred vision, no tearing, no double vision, no ear pain, no ear discharge, no nose pain, no nasal congestion, no throat pain, no throat swelling, no mouth pain. RESPIRATORY: No cough, no orthopnea, no SOB, no stridor, no wheezing. CARDIOVASCULAR: No chest pain, no edema, no palpitations, no syncope. GASTROINTESTINAL/ABDOMINAL: No abdominal pain, no constipation, no diarrhea, no nausea, no vomiting. GENITOURINARY: No abnormal discharge, no dysuria, no frequent urination, no hematuria. No complaints of pain in the genitals. MUSCULOSKELETAL: No back pain, no gout, no joint pain, no joint swelling, no muscle pain, no muscle stiffness, no neck pain. INTEGUMENTARY: No change in color, no change in hair/nails, no dryness, no lesion, no lumps, no rash. NEUROLOGICAL/PSYCH: No anxiety, not depressed, no emotional problem, no headache, no numbness, no pre-existing deficit, no history of seizures, no tremors, no weakness. HEMATOLOGIC/LYMPHATIC: Not anemic, no history of blood clots, no apparent bleeding, no bruising, glands not swollen. All Systems Negative, Except as Noted. Physical Exam Physical Exam Dictation VITAL SIGNS: Reviewed. GENERAL APPEARANCE: Alert, oriented x3, no acute distress, obese. HEAD AND FACE: Non-traumatic. EYES: PERRL, pink conjunctivas, eyelid no trauma, anterior chamber clear. EARS: Pinnas intact and no signs of trauma or erythema. Ear canals clear and no discharge. TMs no erythema. NOSE: No discharge, no bleeding. OROPHARYNX: Mouth normal, teeth no caries, tongue pink. Pharynx clear, no erythema. Tonsils no exudates, no abscesses noted. Mucous membrane moist. NECK: Supple, non-tender, no thyromegaly, no masses, no JVD, no bruits. BREAST: Deferred. CHEST: No tenderness, no crepitus, no paradoxical movement, no retractions. LUNGS: Clear, well-ventilated, symmetric, no rales, no wheezing, no rhonchi, no stridor, good breath sounds bilaterally. HEART: Regular rate, regular rhythm, no murmur, no gallops. VASCULAR: No peripheral edema. ABDOMEN: Soft, positive bowel sounds, nondistended, no guarding, nontender, no rebound, no masses no hepatomegaly, no splenomegaly, no Melissa's sign, no hernias. RECTAL: Deferred. GENITAL: Deferred. NEUROLOGICAL: Normal speech, gross motor function intact, gross sensory function intact. MUSCULOSKELETAL: Neck nontender, full range of motion, back nontender, full range of motion. EXTREMITIES: Nontender, full range of motion. SKIN: Color pink, dry, no turgor, no rash, no lacerations, no abrasions, no contusions. LYMPHATICS: Deferred. Results Laboratory and Microbiology Lab and Micro Result Laboratory Tests Test 07/17/25 15:40 07/17/25 18:00 White Blood Count 4.3 K/uL (4.8-10.8) L Red Blood Count 3.94 MIL/uL (4.00-5.50) L Hemoglobin 12.5 g/dL (12.0-16.0) Hematocrit 37.7 % (36-48) Mean Corpuscular Volume 95.7 fL (79-99) Mean Corpuscular Hemoglobin 31.7 pg (27.0-33.0) Mean Corpuscular Hemoglobin Concent 33.2 g/dL (32.0-36.0) Red Cell Distribution Width 12.3 % (11.0-15.5) Platelet Count 200 K/uL (130-400) Mean Platelet Volume 11.1 fL (7.5-10.5) H Immature Granulocyte % (Auto) 0.2 % (0-1) Neutrophils (%) (Auto) 60.7 % (40.0-77.0) Lymphocytes (%) (Auto) 27.9 % (21.0-51.0) Monocytes (%) (Auto) 8.6 % (3.0-13.0) Eosinophils (%) (Auto) 1.9 % (0.0-8.0) Basophils (%) (Auto) 0.7 % (0.0-5.0) Neutrophils # (Auto) 2.6 K/uL (1.8-7.7) Lymphocytes # (Auto) 1.2 K/uL (1.0-4.8) Monocytes # (Auto) 0.4 K/uL (0.1-1.0) Eosinophils # (Auto) 0.08 K/uL (0.00-0.70) Basophils # (Auto) 0.03 K/uL (0.00-0.20) Absolute Immature Granulocyte (auto 0.01 K/uL (0-1) Nucleated Red Blood Cells 0.0 % (0.0-0.19) Sodium Level 140 mmol/L (136-145) Potassium Level 3.3 mmol/L (3.5-5.1) L Chloride Level 100 mmol/L (101-111) L Carbon Dioxide Level 30 mmol/L (21-32) Blood Urea Nitrogen 8 mg/dL (7-18) Creatinine 0.6 mg/dL (0.5-1.0) Glomerular Filtration Rate Calc 90 mL/min (>90) Random Glucose 121 mg/dL (70-105) H Total Calcium 9.2 mg/dL (8.5-10.1) Troponin I High Sensitivity 7 ng/L (4-50) Urine Color COLORLESS (YELLOW) Urine Appearance CLEAR (CLEAR) Urine pH 7.0 (5.0-8.0) Urine Specific [place] 1.001 (1.001-1.031) Urine Protein NEGATIVE mg/dL (NEGATIVE) Urine Glucose (UA) NEGATIVE mg/dL (NEGATIVE) Urine Ketones NEGATIVE mg/dL (NEGATIVE) Urine Occult Blood NEGATIVE (NEGATIVE) Urine Nitrate NEGATIVE (NEGATIVE) Urine Bilirubin NEGATIVE mg/dL (NEGATIVE) Urine Urobilinogen 0.2 mg/dL (0.2-1.0) Urine Leukocyte Esterase NEGATIVE Deb/uL Labs Reviewed?: Yes EKG/XRAY/US/CT/MRI EKG Comment 07/17/2025 time 1:50 p.m. Ventricular rate 90 Sinus rhythm PA [address] wave elevation or depression CT Scan Comment [id number] [address] IMAGING REPORT Signed PATIENT: JOCELYN FERGUSON MR#: [id number] : 1945 SEX: F AGE: 80 LOCATION: [facility] ORDER 24 STATUS: [facility] REPORT#: [id number] SERVICE 23 REASON: headache ORDERING PHYSICIAN: ANGELICA ANTONIO MD PROCEDURE: HEAD WO - CT HEAD/BRAIN W/O CONTRAST EXAM: CT Head Without IV contrast. CLINICAL HISTORY: headache TECHNIQUE: Axial computed tomography images of the head/brain without intravenous contrast. COMPARISON: None provided. FINDINGS: BRAIN: No evidence of acute hemorrhage. No mass lesion. No CT evidence for acute territorial infarct. No midline shift or extra-axial collections. VENTRICLES: No hydrocephalus. ORBITS: The orbits are unremarkable. SINUSES AND MASTOIDS: The paranasal sinuses and mastoid air cells are clear. BONES: No fracture. SOFT TISSUES: Unremarkable. IMPRESSION: No acute intracranial abnormality. /[place] DICTATED BY: KAYA MITCHELL MD DATE: 07/17/251714 ELECTRONICALLY SIGNED BY: KAYA MITCHELL MD DATE: 07/17/251714 MDM MDM: Differential diagnosis: Sinusitis, eustachian tube dysfunction, chronic headaches, Rationale: Tests considered and ordered secondary to shared decision making include: Previous outside records reviewed: Old ER visits. Risk of complication and/or morbidity or mortality of patient management: None Medications-Per medication reconciliation Need for hospitalization: Patient does not meet criteria for hospitalization. Need for emergency major/minor surgery: No Patient is a an 80-year-old female coming in complaining of ear discomfort and postnasal drip along with this she states that she has been having on and off headaches for some time. Patient has been evaluated on several occasions no CT was performed the patient stated that the headache was so intense she wanted to be evaluated for any possible pathology. CT was performed no acute findings were present. Patient will be discharged in stable condition with a diagnosis of tension headaches with a chronic sinusitis. Patient will be advised to follow up with ENT and PCP. ED Course Orders Procedure Category Date Status Time Cbc With Differential LAB 07/17/25 Complete 15:23 Troponin I High LAB 07/17/25 Complete Sensitivity 15:23 Urinalysis Profile LAB 07/17/25 Complete 15:23 Basic Metabolic Panel LAB 07/17/25 Complete 15:23 Ct Head/Brain W/O CT 07/17/25 Resulted Contrast 15:24 0.9%Nacl 1000ml (Ns PHA 07/17/25 Logged 1000ml) 18:30 Potassium Bicarb/Cit PHA 07/17/25 Logged Ac 25meq (K-Lyte Ta 18:30 Current Medications Medications (Trade) Dose Ordered Sig/Keke Route PRN Reason Start Time Stop Time Status Last Admin Dose Admin Potassium Bicarbonate (K-Lyte Tablet Eff 25 Meq Tablet.eff) 25 meq ONCE ONCE PO 07/17/25 18:30 07/17/25 18:31 UNV Sodium Chloride 1,000 ml @ 0 mls/hr ONCE ONCE IV 07/17/25 18:30 07/17/25 18:31 UNV Vital Signs Date Time Temp Pulse Resp B/P (MAP) Pulse Ox O2 Delivery O2 Flow Rate FiO2 07/17/25 18:00 98.4 92 16 172/74 98 Room Air* 0 21 07/17/25 14:47 98.4 110 16 196/99 98 Room Air 0 DX & DISP Disposition: Discharge Departure Impression: Primary Impression: Chronic sinusitis Additional Impressions: Eustachian tube dysfunction, Tension headache, Dehydration Condition: Stable Additional Instructions: FOLLOW-UP WITH PRIMARY CARE PROVIDER IN 1 TO 2 DAYS. TAKE MEDICATIONS DIRECTED HERE IN THE EMERGENCY ROOM. OKAY TO CONTINUE HOME MEDICATIONS UNLESS OTHERWISE DISCUSSED DURING YOUR VISIT IN THE EMERGENCY ROOM TODAY. RETURN TO YOUR NEAREST EMERGENCY ROOM IF SYMPTOMS WORSEN OR IF THERE IS NO IMPROVEMENT. CALL 911 IF YOU NEED IMMEDIATE ASSISTANCE. TAKE TYLENOL [id number] NEEDED AND IF NO CONTRAINDICATIONS ARE PRESENT. INCREASE ORAL HYDRATION. A WOUND CULTURE OR URINE CULTURE WAS ORDERED HERE IN THE EMERGENCY ROOM DEPARTMENT PLEASE FOLLOW-UP WITH PRIMARY CARE PROVIDER AND ADVISE THEM TO GET REPORTS FROM OUR FACILITY. IF YOU HAD ANY CHARLETTE WRAP/SPLINTS THAT WERE APPLIED HERE, PLEASE DO NOT REMOVE THEM UNTIL YOU SEE YOUR PRIMARY CARE OR SPECIALTY. Referrals: Referrals: EMILIANO NEGRON MD (PCP) SARITA SOLARES MD Time of Disposition: 18:22 ANGELICA ANTONIO MD Jul 17, 2025 15:27
[2025-07-17 15:49] LABS: IMMATURE GRANULOCYTE ABSOLUTE 0.01 K/uL (0-1); NUCLEATED RED BLOOD CELLS 0.0 % (0.0-0.19); PLATELET COUNT (AUTO) 200 K/uL (130-400); RED BLOOD CELL COUNT(AUTO) 3.94 MIL/uL (4.00-5.50); RED CELL DISTRIBUTION WIDTH 12.3 % (11.0-15.5); WHITE BLOOD COUNT (AUTO) 4.3 K/uL (4.8-10.8)
[2025-07-17 16:01] LABS: CREATININE 0.6 mg/dL (0.5-1.0); GLOMERULAR FILTR. RATE CALC 90.0 mL/min (>90); GLUCOSE,RANDOM 121.0 mg/dL (70-105); SODIUM SERUM 140.0 mmol/L (136-145); UREA NITROGEN, BLOOD 8.0 mg/dL (7-18)
--- NOTE | 2025-07-17 16:16 | HMCIMG ---
EXAM: CT Head Without IV contrast. CLINICAL HISTORY: headache TECHNIQUE: Axial computed tomography images of the head/brain without intravenous contrast. COMPARISON: None provided. FINDINGS: BRAIN: No evidence of acute hemorrhage. No mass lesion. No CT evidence for acute territorial infarct. No midline shift or extra-axial collections. VENTRICLES: No hydrocephalus. ORBITS: The orbits are unremarkable. SINUSES AND MASTOIDS: The paranasal sinuses and mastoid air cells are clear. BONES: No fracture. SOFT TISSUES: Unremarkable. IMPRESSION: No acute intracranial abnormality. /[place]
[2025-07-17 18:15] LABS: ADD UA MICROSCOPIC NO; APPEARANCE,URINE CLEAR (CLEAR); GLUCOSE, URINE (UA) NEGATIVE (NEGATIVE); LEUKOCYTE ESTERASE ,URINE NEGATIVE Leu/uL (NEGATIVE); NITRATE,URINE NEGATIVE (NEGATIVE); OCCULT BLOOD,URINE NEGATIVE (NEGATIVE)
[2025-07-17] MEDS: 0.9%NACL 1000ML 1,000 ML IV ONE (18:38)
--- NOTE | 2025-07-17 18:48 | NUR ---
Waiting for fluids to finish for d/c, aware
[2025-07-17 19:42] VITALS: BP 158/68; PULSE 88; RESP 16; TEMP 98.4; O2SAT 98
== END 2025-07-17 19:43 | disposition home or self-care (01) ==
LOC: EDH 14:44
DX: J32.9 Chronic sinusitis, unspecified (principal); G44.209 Tension-type headache, unspecified, not intractable; E86.0 Dehydration; H69.90 Unspecified Eustachian tube disorder, unspecified ear; I10 Essential (primary) hypertension; E78.00 Pure hypercholesterolemia, unspecified; Z79.899 Other long term (current) drug therapy; Z98.51 Tubal ligation status; Z98.890 Other specified postprocedural states
CPT/HCPCS: 99284; 70450; 84484; 80048; 85025; 81003; 36415; J7030